=== PATIENT | male | born 1985 | race Caucasian/White ===

== ENCOUNTER 2017-11-12 10:51 | Emergency (ER) | payer SELFPAY ==
[~2017-11-12] VITALS: Ht 175.3 cm; Wt 99.8 kg
[2017-11-12 11:02] VITALS: BP 143/90
--- NOTE | 2017-11-12 11:15 | NUR ---
PATIENT PRESENTS TO ED WITH SORE THROAT . PT STATES HE HAS HAD SORE THROAT X4 DAYS . DENIES N/V/D; SKIN IS PINK/WARM/DRY; AAOX4 WITH EVEN AND STEADY GAIT; LUNGS CLEAR BL; HR EVEN AND REGULAR; PT DENIES ANY FEVER, CP, SOB, OR COUGH AT THIS TIME; PATIENT STATES PAIN OF 10/10 AT THIS TIME; VSS; PATIENT POSITIONED FOR COMFORT; ER MD MADE AWARE OF PT STATUS.
[2017-11-12 11:49] VITALS: BP 143/90
--- NOTE | 2017-11-12 11:53 | NUR ---
Patient discharged with v/s stable. Written and verbal after care instructions given and explained. Patient verbalized understanding. Ambulatory with steady gait. All questions addressed prior to discharge. Advised to follow up with PMD.
== END 2017-11-12 11:53 | disposition home or self-care (01) ==
LOC: MED 10:51
DX: J02.9 Acute pharyngitis, unspecified (principal); H92.03 Otalgia, bilateral; R51 Headache
CPT/HCPCS: 99281

== ENCOUNTER 2019-10-02 22:59 | Emergency (ER) | payer MEDICAID ==
[~2019-10-02] VITALS: Ht 180.3 cm; Wt 108.9 kg
--- NOTE | 2019-10-02 23:04 | NUR ---
PT AMBULATED TO ER BED 05
[2019-10-02 23:08] VITALS: BP 138/77
--- NOTE | 2019-10-02 23:17 | NUR ---
34 Y/O MALE PRESENTS TO ED, C/O LLQ ABDOMINAL PAIN, 06/04. PT STATES PAIN STARTED THIS MORNING AND WORSENING. NO N/V. C/O DIARRHEA THIS MORNING. TOOK MOTRIN 30 MINS PRIOR COMING TO ED, NO RELIEF. BS ACTIVE X4 QUADRANTS. PT DENIES ANY CHEST PAIN. NO SOB/DIFFICULTY BREATHING NOTED. PT VSS. ERMD AWARE. WILL CONTINUE TO MONITOR.
[2019-10-02] MEDS ORDERED: NACL 0.9% 1,000 ML IV ONE (23:23)
[2019-10-02] MEDS ORDERED: ONDANSETRON 4 MG/2 ML VIAL IVP ONE (23:25)
[2019-10-02] MEDS ORDERED: MORPHINE SULFATE 4 MG/ML SYR IVP ONE (23:25)
--- NOTE | 2019-10-02 23:43 | NUR ---
BLOOD DRAWN AND URINE SPECIMEN SENT TO LAB AT THIS TIME
--- NOTE | 2019-10-02 23:45 | NUR ---
PT TAKEN TO CT VIA WHEELCHAIR
[2019-10-02 23:48] LABS: BASOPHILS % (AUTO) 0.3 % (0.0-2.0); EOSINOPHILS # (AUTO) 0.1 K/uL (0-0.4); EOSINOPHILS % (AUTO) 0.7 % (0.0-4.0); HEMATOCRIT 44.7 % (36-52); LYMPHOCYTES # (AUTO) 1.9 K/uL (2.0-11.5); LYMPHOCYTES % (AUTO) 16.6 % (20.5-51.1); MEAN CORPUSCULAR HEMOGLOBIN 29 pg (27-31); MEAN CORPUSCULAR HGB CONC 34 g/dL (33-37); MEAN CORPUSCULAR VOLUME 87.8 fL (80-94); MONOCYTES # (AUTO) 0.9 K/uL (0.8-1.0); MONOCYTES % (AUTO) 7.8 % (1.7-9.3); NEUTROPHILS # (AUTO) 8.7 K/uL (1.8-7.7); NEUTROPHILS % (AUTO) 74.6 % (42.2-75.2); PLATELET COUNT (AUTO) 254 K/uL (140-450); RED BLOOD CELL COUNT(AUTO) 5.09 MIL/uL (4.20-6.10); RED CELL DISTRIBUTION WIDTH 12.7 % (11.6-13.7); WHITE BLOOD COUNT (AUTO) 11.6 K/uL (4.8-10.8)
[2019-10-02 23:50] LABS: APPEARANCE,URINE CLEAR (CLEAR); BILIRUBIN,URINE NEGATIVE (NEGATIVE); BLOOD, URINE NEGATIVE (NEGATIVE); COLOR,URINE YELLOW (YELLOW); LEUKOCYTE ESTERASE ,URINE NEGATIVE (NEGATIVE); NITRITE, URINE NEGATIVE (NEGATIVE); UGLUCOSE NEGATIVE (NEGATIVE)
[2019-10-03 00:02] LABS: ANION GAP 10.5 (8-16); CARBON DIOXIDE 30.4 mmol/L (21-32); CREATININE 0.9 mg/dL (0.6-1.3); POTASSIUM 3.9 mmol/L (3.5-5.1); TOTAL BILIRUBIN 0.7 mg/dL (0.0-1.0)
--- NOTE | 2019-10-03 00:21 | NUR ---
PT STATES RELIEF FROM MEDICATION, PAIN IS 2/10. DENIES N/V. ERMD AWARE. WILL CONTINUE TO MONITOR.
[2019-10-03] MEDS ORDERED: KETOROLAC 30 MG/ML VIAL IVP ONE (01:00)
[2019-10-03] MEDS ORDERED: MORPHINE SULFATE 4 MG/ML SYR IVP ONE (01:00)
[2019-10-03] MEDS ORDERED: ONDANSETRON 4 MG/2 ML VIAL IVP ONE (01:00)
[2019-10-03] MEDS ORDERED: metroNIDAZOLE 500 MG/NS PREMIX 100 ML IV ONE (01:00)
[2019-10-03 02:19] VITALS: BP 121/75
--- NOTE | 2019-10-03 02:19 | NUR ---
PT DISCHARGED WITH PAPERWORK. EDUCATED PT REGARDING MEDICATIONS AND D/C INSTRUCTIONS. PT VERBALIZED UNDERSTANDING. TOLD PT TO FOLLOW UP WITH PCP AND WHEN TO RETURN TO ED. PT STABLE CONDITION. ALL QUESTIONS ANSWERED.
== END 2019-10-03 02:19 | disposition home or self-care (01) ==
LOC: MED 22:59
DX: K57.92 Diverticulitis of intestine, part unspecified, without perforation or abscess without bleeding (principal); R19.7 Diarrhea, unspecified; F17.210 Nicotine dependence, cigarettes, uncomplicated
CPT/HCPCS: 36415; 74176; 80053; 81003; 83690; 85025; 96361; 96365; 96375; 96376; 99284; J1885; J2270; J2405; J3490; J7030

== ENCOUNTER 2021-06-18 12:44 | Emergency (ER) | payer SELFPAY ==
[~2021-06-18] VITALS: Ht 180.3 cm; Wt 107.5 kg
[2021-06-18 12:55] VITALS: BP 143/95
--- NOTE | 2021-06-18 13:00 | NUR ---
Pt to wait in lobby
[2021-06-18] MEDS ORDERED: SULF-59 PO (13:34)
[2021-06-18 13:45] VITALS: BP 143/95
--- NOTE | 2021-06-18 13:45 | NUR ---
Patient discharged with v/s stable. Written and verbal after care instructions given and explained. Patient alert, oriented and verbalized understanding of instructions. Ambulatory with steady gait TO CAR WITH SPOUSE. All questions addressed prior to discharge. ID band removed. Patient advised to follow up with PMD. Rx of BACTRIM DS (SENT) given. Patient educated on indication of medication including possible reaction and side effects. Opportunity to ask questions provided and answered.
== END 2021-06-18 13:45 | disposition home or self-care (01) ==
LOC: MED 12:44
DX: L02.01 Cutaneous abscess of face (principal); F17.210 Nicotine dependence, cigarettes, uncomplicated; F12.90 Cannabis use, unspecified, uncomplicated; Z79.899 Other long term (current) drug therapy
CPT/HCPCS: 99283

== ENCOUNTER 2022-06-17 21:14 | Emergency (ER) | payer MEDICAID ==
[~2022-06-17] VITALS: Ht 177.8 cm; Wt 113.4 kg
[~2022-06-17 21:14] MED LIST: SULF-59 PO
[2022-06-17 21:22] VITALS: BP 160/95
--- NOTE | 2022-06-17 21:25 | NUR ---
TO LOBBY A/W BED AMBULATORY
--- NOTE | 2022-06-17 21:41 | NUR ---
PT TO BED 09.
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
--- NOTE | 2022-06-17 22:11 | NUR ---
abril milan at bedside examining pt.
[2022-06-17] MEDS ORDERED: KETOROLAC 30 MG/ML VIAL IM ONE (22:25)
[2022-06-17] MEDS ORDERED: LIDOCAINE 5% 1 EA PATCH TP ONE (22:25)
[2022-06-17] MEDS ORDERED: ACETAMINOPHEN EXTRA STRENGTH 500 MG TAB PO ONE (22:25)
--- NOTE | 2022-06-17 23:11 | NUR ---
PATIENT SITTING IN BED. STATED THAT HIS PAIN FEELS MUCH BETTER AFTER THE PAIN MEDS. PLACED ON MONITOR. BED LOW AND LOCKED. ALL NEEDS MET.
--- NOTE | 2022-06-17 23:17 | NUR ---
ELLEN AMOR AT BEDSIDE
[2022-06-17] MEDS ORDERED: IBUP-2213 PO (23:21)
[2022-06-17] MEDS ORDERED: ACET-9800 PO (23:21)
--- NOTE | 2022-06-17 23:25 | NUR ---
ELLEN AMOR AT BEDSIDE
--- NOTE | 2022-06-17 23:27 | NUR ---
Patient discharged with v/s stable. Written and verbal after care instructions given and explained. Patient alert, oriented and verbalized understanding of instructions. Ambulatory with steady gait. All questions addressed prior to discharge. ID band removed. Patient advised to follow up with PMD. Rx of IBUPROFEN AND TYLENOL given. Patient educated on indication of medication including possible reaction and side effects. Opportunity to ask questions provided and answered.
[2022-06-17 23:28] VITALS: BP 147/97
== END 2022-06-17 23:26 | disposition home or self-care (01) ==
LOC: MED 21:14
DX: M54.50 Low back pain, unspecified (principal)
CPT/HCPCS: 96372; 99283; J1885